=== PATIENT | female | born 1985 | race Hispanic/Latino ===

== ENCOUNTER → 2016-10-23 | Outpatient (CLI) | payer SELFPAY | END | disposition home or self-care (01) | LOC: YCFC.O 12:14 | PROVIDERS: ATTEND Nurse Practitioner Family | DX: E03.9 Hypothyroidism, unspecified (principal) ==

== ENCOUNTER → 2017-02-14 | Outpatient (CLI) | payer SELFPAY | LOC: YCFC.O 16:04 | PROVIDERS: ATTEND Nurse Practitioner Family | DX: E03.9 Hypothyroidism, unspecified (principal) ==

== ENCOUNTER → 2019-12-28 | Outpatient (CLI) | payer OTHER | LOC: LAB.O 16:34 | PROVIDERS: ATTEND Nurse Practitioner | DX: E03.9 Hypothyroidism, unspecified (principal) ==

== ENCOUNTER → 2020-02-17 | Outpatient (CLI) | payer OTHER | LOC: YCFC.O 15:56 | PROVIDERS: ATTEND Nurse Practitioner | DX: E03.9 Hypothyroidism, unspecified (principal) ==

== ENCOUNTER → 2020-04-29 | Outpatient (CLI) | payer SELFPAY | LOC: YCFC.O 14:16 | PROVIDERS: ATTEND Nurse Practitioner | DX: E03.9 Hypothyroidism, unspecified (principal) ==

== ENCOUNTER → 2020-07-04 | Outpatient (CLI) | payer SELFPAY | LOC: YCFC.O 14:34 | PROVIDERS: ATTEND Nurse Practitioner | DX: E03.9 Hypothyroidism, unspecified (principal) ==